=== PATIENT | female | born 1960 | race Caucasian/White ===

== ENCOUNTER 2019-05-30 16:31 | Emergency (ER) | payer MEDICAID ==
[~2019-05-30] VITALS: Ht 165.1 cm; Wt 91.0 kg
[2019-05-30] MEDS ORDERED: BUSP15TA3 PO (17:41)
[2019-05-30] MEDS ORDERED: DULO60CA64 PO (17:41)
[2019-05-30] MEDS ORDERED: PRAZ1CAP5 PO (17:41)
[2019-05-30] MEDS ORDERED: GABA-531 PO (17:41)
[2019-05-30 20:22] VITALS: BP 138/72
[2019-05-30 20:44] LABS: CLARITY URINE CLOUDY (CLEAR); COLOR URINE YELLOW (YELLOW); KETONES URINE NEGATIVE (NEGATIVE); LEUKOCYTE ESTERASE URINE 3+ (NEGATIVE); NITRITE URINE NEGATIVE (NEGATIVE); OCCULT BLOOD URINE TRACE (NEGATIVE); PH URINE 6.5 (4.5-8.0); PROTEIN URINE NEGATIVE (NEGATIVE); UROBILINOGEN URINE 0.2 E.U./dL (0.2-1.0)
== END 2019-05-30 20:25 | disposition home or self-care (01) ==
LOC: ER 17:11
DX: K59.00 Constipation, unspecified (principal); F41.9 Anxiety disorder, unspecified; F31.9 Bipolar disorder, unspecified; F11.10 Opioid abuse, uncomplicated; F15.10 Other stimulant abuse, uncomplicated; F17.200 Nicotine dependence, unspecified, uncomplicated; Z79.899 Other long term (current) drug therapy; Z90.49 Acquired absence of other specified parts of digestive tract; Z87.19 Personal history of other diseases of the digestive system
CPT/HCPCS: 81003; 99283

== ENCOUNTER 2019-05-31 12:23 | Emergency (ER) | payer MEDICAID ==
[~2019-05-31] VITALS: Ht 165.1 cm; Wt 88.0 kg
[~2019-05-31 12:23] MED LIST: BUSP15TA3 PO; DULO60CA64 PO; GABA-531 PO; PRAZ1CAP5 PO
[2019-05-31 14:41] VITALS: BP 118/73
== END 2019-05-31 14:44 | disposition home or self-care (01) ==
LOC: ER 12:23
DX: Z04.89 Encounter for examination and observation for other specified reasons (principal); F41.9 Anxiety disorder, unspecified; F32.9 Major depressive disorder, single episode, unspecified; F15.10 Other stimulant abuse, uncomplicated; F11.10 Opioid abuse, uncomplicated; F17.210 Nicotine dependence, cigarettes, uncomplicated; Z90.49 Acquired absence of other specified parts of digestive tract
CPT/HCPCS: 99281